=== PATIENT | female | born 2000 | race Caucasian/White ===

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

== ENCOUNTER 2023-04-19 09:11 | Outpatient (CLI) | payer BC | END 2023-04-19 09:12 | disposition home or self-care (01) | LOC: BICULT 09:11 | PROVIDERS: ATTEND Internal Medicine Gastroenterology | DX: R14.0 Abdominal distension (gaseous) (principal); F41.9 Anxiety disorder, unspecified; R63.5 Abnormal weight gain | CPT/HCPCS: 76700 ==

== ENCOUNTER 2023-05-31 08:57 | Outpatient (CLI) | payer BC | END 2023-05-31 08:58 | disposition home or self-care (01) | LOC: NM 08:57 | PROVIDERS: ATTEND Internal Medicine Gastroenterology | DX: R11.2 Nausea with vomiting, unspecified (principal); K31.89 Other diseases of stomach and duodenum | CPT/HCPCS: 78264; A9541 ==

== ENCOUNTER 2025-03-29 08:52 | Outpatient (CLI) | payer BC | END 2025-03-29 08:53 | disposition home or self-care (01) | LOC: CT 08:52 | PROVIDERS: ATTEND Otolaryngology | DX: H93.293 Other abnormal auditory perceptions, bilateral (principal); H92.03 Otalgia, bilateral; J34.89 Other specified disorders of nose and nasal sinuses ==